=== PATIENT | female | born 2000 | race Two or more races ===

== ENCOUNTER 2019-04-30 18:54 | Inpatient (IN) | payer MEDICAID ==
[~2019-04-30] VITALS: Ht 165.1 cm; Wt 67.6 kg
[2019-04-30] MEDS ORDERED: ZOLPIDEM TARTRATE 10 MG TABLET PO PRN (19:30)
[2019-04-30] MEDS ORDERED: HALOPERIDOL 5 MG TABLET PO PRN (19:30)
[2019-04-30] MEDS ORDERED: LORazepam 2 MG TABLET PO PRN (19:30)
[2019-04-30] MEDS ORDERED: INFLUENZA VIRUS VACCINE QVS 2019-20 (3YR+)/PF 60 MCG/0.5 ML SYRINGE IM ONE (20:00)
[2019-04-30 20:29] VITALS: BP 120/55
[2019-04-30] MEDS: RisperiDONE 2 MG TABLET PO SCH (21:29)
[2019-05-01 05:17] VITALS: BP 107/74
[2019-05-01] MEDS: RisperiDONE 2 MG TABLET PO SCH ×2 (08:14→16:45)
[2019-05-01] MEDS: CITALOPRAM HYDROBROMIDE 20 MG TABLET PO SCH (08:14)
[2019-05-01 08:21] VITALS: BP 100/61
[2019-05-01 08:51] LABS: BASOPHILS % (AUTO) 1.1 % (0.0-2.0); EOSINOPHILS % (AUTO) 1.8 % (1.0-6.0); HEMATOCRIT 38.8 % (36-46); HEMOGLOBIN 13.1 g/dL (12.0-16.0); LYMPHOCYTES # (AUTO) 1.6 K/uL (1.0-4.8); LYMPHOCYTES % (AUTO) 37.5 % (22.0-44.0); MEAN CORPUSCULAR HEMOGLOBIN 29.9 pg (26.0-34.0); MEAN CORPUSCULAR HGB CONC 33.8 G/dL (31.0-37.0); MEAN CORPUSCULAR VOLUME 89 fL (80-100); MONOCYTES # (AUTO) 0.3 K/uL (0.1-1.0); MONOCYTES % (AUTO) 7.2 % (2.0-9.0); NEUTROPHILS # (AUTO) 2.2 K/uL (1.8-7.7); NEUTROPHILS % (AUTO) 52.4 % (40.0-70.0); PLATELET COUNT (AUTO) 115 K/uL (150-450); RED BLOOD CELL COUNT(AUTO) 4.38 MIL/uL (4.00-5.20); RED CELL DISTRIBUTION WIDTH 13.4 % (11.5-14.5)
[2019-05-01 09:18] LABS: HEMOGLOBIN A1C 5.3 % (4.5-6.2)
[2019-05-01 09:39] LABS: ALANINE AMINOTRANSFERASE 13 U/L (12-78); ALBUMIN 4.2 g/dL (3.4-5.0); ALKALINE PHOSPHATASE 44 U/L (46-116); ANION GAP 10 mmol/L (8-16); ASPARTATE AMINOTRANSFERASE 12 U/L (15-37); BILIRUBIN,TOTAL 0.4 mg/dL (0.1-1.0); CALCIUM, TOTAL 8.9 mg/dL (8.8-10.5); CARBON DIOXIDE 26 mmol/L (22-29); CHLORIDE 102 mmol/L (98-107); CHOL/HDL RATIO 3.6 (3.9-5.7); CHOLESTEROL 165 mg/dL (131-200); CREATININE 0.92 mg/dL (0.60-1.30); FREE T4 (FREE THYROXINE) 1.18 ng/dL (0.76-1.46); GLOMERULAR FILTR. RATE CALC > 60 mL/min (>60); GLUCOSE,RANDOM 68 mg/dL (70-110); HCG,QUANTITATIVE < 1 mIU/mL (0-6); HDL CHOLESTEROL 46 mg/dL (40-60); LDL CHOL (CALC.) 105 mg/dL (0-130); POTASSIUM 3.7 mmol/L (3.5-5.1); SODIUM SERUM 138 mmol/L (136-145); THYROID STIMULATING HORMONE 2.26 uIU/mL (0.36-3.74); TOTAL PROTEIN, SERUM 8.2 g/dL (6.4-8.2); TRIGLYCERIDES 69 mg/dL (15-150); UREA NITROGEN, BLOOD 18 mg/dL (7-18)
[2019-05-01 17:18] VITALS: BP 100/68
[2019-05-02 05:49] VITALS: BP 131/67
[2019-05-02 08:06] VITALS: BP 101/56
[2019-05-02] MEDS: CITALOPRAM HYDROBROMIDE 20 MG TABLET PO SCH (08:59)
[2019-05-02] MEDS: RisperiDONE 2 MG TABLET PO SCH ×2 (08:59→16:05)
[2019-05-02 16:12] VITALS: BP 101/65
[2019-05-03 05:23] VITALS: BP 134/78
[2019-05-03 08:07] VITALS: BP 100/59
[2019-05-03] MEDS: RisperiDONE 2 MG TABLET PO SCH ×2 (08:48→16:02)
[2019-05-03] MEDS: CITALOPRAM HYDROBROMIDE 20 MG TABLET PO SCH (08:48)
[2019-05-03 16:16] VITALS: BP 127/60
[2019-05-04 06:39] VITALS: BP 100/58
[2019-05-04] MEDS: CITALOPRAM HYDROBROMIDE 20 MG TABLET PO SCH (08:09)
[2019-05-04] MEDS: RisperiDONE 2 MG TABLET PO SCH ×2 (08:09→16:36)
[2019-05-04 08:14] VITALS: BP 118/59
[2019-05-04 16:38] VITALS: BP 141/87
[2019-05-04] MEDS ORDERED: CIPROFLOXACIN HCL 500 MG TABLET PO SCH (20:15)
[2019-05-04 21:15] VITALS: BP 103/64
[2019-05-04] MEDS: SULFAMETHOX/TRIMETH DS 800-160 MG/TABLET PO SCH (21:36)
[2019-05-04] MEDS: IBUPROFEN 600 MG TABLET PO PRN (21:39)
[2019-05-05 06:47] VITALS: BP 110/62
[2019-05-05 07:23] LABS: APPEARANCE,URINE TURBID (CLEAR); GLUCOSE, URINE (UA) NEGATIVE (NEGATIVE); KETONES,URINE >=80 mg/dL (NEGATIVE); LEUKOCYTE ESTERASE ,URINE NEGATIVE (NEGATIVE); NITRATE,URINE NEGATIVE (NEGATIVE); OCCULT BLOOD,URINE NEGATIVE (NEGATIVE); PROTEIN,URINE NEGATIVE (NEGATIVE)
[2019-05-05 07:24] LABS: BILIRUBIN,URINE PRELIM. POSITIVE (NEGATIVE)
[2019-05-05 07:27] LABS: AMPHET/METH SCREEN,URINE NEGATIVE (NEGATIVE); BARBITURATE SCREEN, URINE NEGATIVE (NEGATIVE); BENZODIAZEPINES SCREEN,URINE NEGATIVE (NEGATIVE); CANNABINOID SCREEN,URINE NEGATIVE (NEGATIVE); COCAINE SCREEN,URINE NEGATIVE (NEGATIVE); METHADONE SCREEN, URINE NEGATIVE (NEGATIVE); OPIATE SCREEN,URINE NEGATIVE (NEGATIVE); PHENCYCLIDINE SCREEN,URINE NEGATIVE (NEGATIVE)
[2019-05-05 07:33] LABS: AMORPHOUS SEDIMENT,UR Many /LPF (None Seen); BACTERIA,URINE None Seen /HPF (None Seen); CALCIUM OXALATE CRYSTALS,UR Few /LPF (None Seen); RBC,URINE None Seen /HPF (0-2); SQUAMOUS EPITHELIAL CELL,UR Rare /LPF (None Seen); WBC,URINE None Seen /HPF (0-5)
[2019-05-05 08:15] VITALS: BP 104/56
[2019-05-05] MEDS: RisperiDONE 2 MG TABLET PO SCH ×2 (08:28→16:09)
[2019-05-05] MEDS: CITALOPRAM HYDROBROMIDE 20 MG TABLET PO SCH (08:28)
[2019-05-05] MEDS: SULFAMETHOX/TRIMETH DS 800-160 MG/TABLET PO SCH ×2 (08:28→16:09)
[2019-05-05] MEDS: PHENAZOPYRIDINE HCL 200 MG TABLET PO SCH ×3 (08:28→16:09)
[2019-05-05 16:12] VITALS: BP 100/59
[2019-05-05] MEDS: MAG HYDROX/AL HYDROX/SIMETH ES 30 ML SUSPENSION UDCUP PO PRN (18:31)
[2019-05-06 06:24] VITALS: BP 115/67
[2019-05-06 08:14] VITALS: BP 100/58
[2019-05-06] MEDS ORDERED: PETROLATUM,WHITE 28 GM JELLY TP PRN (08:30)
[2019-05-06] MEDS ORDERED: BACITRACIN 28.4 GM OINTMENT TP PRN (08:30)
[2019-05-06] MEDS ORDERED: MAGNESIUM HYDROXIDE SUSPENSION 30 ML UDCUP PO PRN (08:30)
[2019-05-06] MEDS ORDERED: IBUPROFEN 600 MG TABLET PO PRN (08:30)
[2019-05-06] MEDS ORDERED: DOCUSATE SODIUM 100 MG CAPSULE PO PRN (08:30)
[2019-05-06] MEDS ORDERED: ACETAMINOPHEN 325 MG TABLET PO PRN (08:30)
[2019-05-06] MEDS ORDERED: MAG HYDROX/AL HYDROX/SIMETH ES 30 ML SUSPENSION UDCUP PO PRN (08:30)
[2019-05-06] MEDS ORDERED: CloNIDine HCL 0.1 MG TABLET PO PRN (08:30)
[2019-05-06] MEDS ORDERED: ALBUTEROL SULFATE HFA 90 MCG/PUFF 8 GM INHALER IH PRN (08:30)
[2019-05-06] MEDS ORDERED: LOPERAMIDE HCL 2 MG CAPSULE PO PRN (08:30)
[2019-05-06] MEDS ORDERED: OMEPRAZOLE 20 MG CAPSULE PO PRN (08:30)
[2019-05-06] MEDS ORDERED: ONDANSETRON HCL 4 MG TABLET PO PRN (08:30)
[2019-05-06] MEDS ORDERED: BENZOCAINE/MENTHOL LOZENGE MM PRN (08:30)
[2019-05-06] MEDS: PHENAZOPYRIDINE HCL 200 MG TABLET PO SCH ×3 (08:33→16:09)
[2019-05-06] MEDS: RisperiDONE 2 MG TABLET PO SCH (08:33)
[2019-05-06] MEDS: CITALOPRAM HYDROBROMIDE 20 MG TABLET PO SCH (08:34)
[2019-05-06 16:15] VITALS: BP 104/71
[2019-05-06] MEDS: RisperiDONE 3 MG TABLET PO SCH (20:38)
[2019-05-06] MEDS: MAG HYDROX/AL HYDROX/SIMETH ES 30 ML SUSPENSION UDCUP PO PRN (21:22)
[2019-05-07 06:02] VITALS: BP 103/65
[2019-05-07 08:21] VITALS: BP 102/55
[2019-05-07] MEDS: CITALOPRAM HYDROBROMIDE 10 MG TABLET PO SCH (08:34)
[2019-05-07] MEDS: RisperiDONE 3 MG TABLET PO SCH ×2 (08:34→21:08)
[2019-05-07] MEDS: PHENAZOPYRIDINE HCL 200 MG TABLET PO SCH ×3 (08:34→16:33)
[2019-05-07 16:00] VITALS: BP 110/74
[2019-05-07 18:31] VITALS: BP 110/71
[2019-05-07] MEDS: IBUPROFEN 600 MG TABLET PO PRN (18:33)
[2019-05-08 01:23] VITALS: BP 105/58
[2019-05-08 07:30] LABS: GLUCOSE, URINE (UA) NEGATIVE (NEGATIVE); KETONES,URINE 15 mg/dL (NEGATIVE); LEUKOCYTE ESTERASE ,URINE SMALL (NEGATIVE); NITRATE,URINE POSITIVE (NEGATIVE); PROTEIN,URINE NEGATIVE (NEGATIVE)
[2019-05-08 07:31] LABS: APPEARANCE,URINE CLOUDY (CLEAR); BILIRUBIN,URINE PRELIM. POSITIVE (NEGATIVE)
[2019-05-08 07:46] LABS: OCCULT BLOOD,URINE NEGATIVE (NEGATIVE)
[2019-05-08 07:47] LABS: BACTERIA,URINE Few /HPF (None Seen); CALCIUM OXALATE CRYSTALS,UR Moderate /LPF (None Seen); RBC,URINE None Seen /HPF (0-2); SQUAMOUS EPITHELIAL CELL,UR Moderate /LPF (None Seen); WBC,URINE 0-2 /HPF (0-5)
[2019-05-08 07:48] LABS: AMORPHOUS SEDIMENT,UR Many /LPF (None Seen)
[2019-05-08] MEDS ORDERED: CITA10TA68 PO (07:58)
[2019-05-08] MEDS ORDERED: RISP3 PO (07:59)
[2019-05-08 08:10] VITALS: BP 116/71
[2019-05-08] MEDS: PHENAZOPYRIDINE HCL 200 MG TABLET PO SCH ×2 (08:29→12:47)
[2019-05-08] MEDS: CITALOPRAM HYDROBROMIDE 10 MG TABLET PO SCH (08:30)
[2019-05-08] MEDS: RisperiDONE 3 MG TABLET PO SCH (08:30)
[2019-05-08 16:11] VITALS: BP 122/84
== END 2019-05-08 17:45 | disposition home or self-care (01) | DRG 750 ==
LOC: B3A 19:26
PROVIDERS: ADMIT Psychiatry & Neurology Psychiatry; ATTEND Psychiatry & Neurology Psychiatry
DX: F25.9 Schizoaffective disorder, unspecified (principal); R45.851 Suicidal ideations; F41.9 Anxiety disorder, unspecified; G47.00 Insomnia, unspecified; K59.00 Constipation, unspecified; N39.0 Urinary tract infection, site not specified; Z79.899 Other long term (current) drug therapy
CPT/HCPCS: 70450; 80307; 83036; 84439; 84443